=== PATIENT | female | born 1950 | race Caucasian/White ===

== ENCOUNTER 2016-06-01 13:47 | Emergency (ER) | payer OTHER, MEDICARE ==
[~2016-06-01] VITALS: Ht 162.6 cm; Wt 95.3 kg
[~2016-06-01 13:47] MED LIST: ALPRAZOLAM1 M2 PO; ASPIR 8181 MG PO; ATORVASTATIN CA20 M1 PO; CABERGOLINE0.5 M2 PO; CRESTOR20 MG PO; DEXILANT60 MG PO; DIOVAN HCT 1601 EAC1 PO; DIOVAN HCT 25 M1 TAB PO; IBUPROFEN600 M1 PO; METOPROLOL SUCC25 MG PO; MOTRIN 600 MG600 MG PO; NEXIUM40 M1 PO; NORVASC 5MG TAB5 MG PO; VITAMIN D32000 UNI1 PO; [UNRECOGNIZED DRUG - OTHER] PO
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
[2016-06-01] MEDS ORDERED: TOPROL XL50 M1 PO (14:57)
[2016-06-01] MEDS ORDERED: KEFLEX500 M1 PO (14:58)
== END 2016-06-01 15:12 ==
LOC: ERH 13:47
DX: T23.071A Burn of unspecified degree of right wrist, initial encounter (principal); L03.113 Cellulitis of right upper limb; X12.XXXA Contact with other hot fluids, initial encounter

== ENCOUNTER 2016-10-09 11:39 | Emergency (ER) | payer OTHER, MEDICARE ==
[~2016-10-09] VITALS: Ht 165.1 cm; Wt 96.2 kg
[~2016-10-09 11:39] MED LIST changes: +KEFLEX500 M1 PO; +TOPROL XL50 M1 PO
[2016-10-09 11:43] VITALS: BP 111/69
[2016-10-09] MEDS ORDERED: AMOXICILLIN500 M2 PO (11:59)
[2016-10-09] MEDS ORDERED: NEOMYCIN-POLYMY10 M1 OT (11:59)
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
== END 2016-10-09 12:14 ==
LOC: ERH 11:39
DX: S20.161A Insect bite (nonvenomous) of breast, right breast, initial encounter (principal); H66.91 Otitis media, unspecified, right ear; H60.91 Unspecified otitis externa, right ear; W57.XXXA Bitten or stung by nonvenomous insect and other nonvenomous arthropods, initial encounter

== ENCOUNTER 2016-11-05 15:12 | Emergency (ER) | payer OTHER, MEDICARE ==
[~2016-11-05] VITALS: Ht 165.1 cm; Wt 96.2 kg
[~2016-11-05 15:12] MED LIST changes: +AMOXICILLIN500 M2 PO; +NEOMYCIN-POLYMY10 M1 OT
[2016-11-05 15:41] VITALS: BP 101/65
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
[2016-11-05] MEDS ORDERED: PYRIDIUM100 M1 PO (17:17)
[2016-11-05] MEDS ORDERED: BACTRIM DS TAB1 EACH PO (17:17)
[2016-11-05] MEDS ORDERED: DIFLUCAN150 M1 PO (17:17)
== END 2016-11-05 17:59 ==
LOC: ERH 15:12
DX: N39.0 Urinary tract infection, site not specified (principal); N76.0 Acute vaginitis
CPT/HCPCS: 81001; 87086